=== PATIENT | female | born 1980 | race Caucasian/White ===

== ENCOUNTER 2019-05-17 12:32 | Outpatient (CLI) | payer BC ==
--- NOTE | 2019-05-17 13:25 | MMO ---
Left Breast MAMMO Unilat Diag DDI LT+DAVID. CLINICAL HISTORY: Patient is 38 years old and is seen for additional evaluation requested at current screening. The patient has no family history of breast cancer. The patient has no personal history of cancer. VIEWS: The views performed were: left craniocaudal with tomosynthesis; left mediolateral oblique with tomosynthesis; and left mediolateral with tomosynthesis. FILMS COMPARED: The present examination has been compared to prior imaging studies performed at [facility] on 05/12/2019, and at [facility] on 05/17/2019. MAMMOGRAM FINDINGS: There are scattered fibroglandular densities. The focal asymmetry in the left inner central breast corresponds to a cluster of small cysts on US. There are no suspicious masses, suspicious calcifications, or new areas of architectural distortion. IMPRESSION: THERE IS NO MAMMOGRAPHIC EVIDENCE OF MALIGNANCY. A ROUTINE FOLLOW-UP MAMMOGRAM IN 1 YEAR IS RECOMMENDED. THE RESULTS OF THIS EXAM WERE SENT TO THE PATIENT. ACR BI-RADS Category 2 - Benign finding MAMMOGRAPHY NOTE: 1. A negative mammogram report should not delay a biopsy if a dominant of clinically suspicious mass is present. 2. Approximately 10% to 15% of breast cancers are not detected by mammography. 3. Adenosis and dense breasts may obscure an underlying neoplasm. Reported by: MICKY PUGH MD Electonically Signed: [id number]
--- NOTE | 2019-05-17 15:22 | ULT ---
LEFT BREAST ULTRASOUND: HISTORY: Abnormal mammogram. CORRELATION: Mammograms from today and from 05/12/2019. FINDINGS: Sonographic evaluation of the retroareolar central region of the left female breast demonstrates a cl uster of cysts at the 10 o'clock position, the largest measuring about 4-5 mm. IMPRESSION: BI-RADS category 2-Benign findings. Return to annual mammographic screening. POS: OFF
== END 2019-05-17 12:33 | disposition home or self-care (01) ==
LOC: BICMAMMO 12:32
PROVIDERS: ATTEND Advanced Practice Midwife
DX: N63.20 Unspecified lump in the left breast, unspecified quadrant (principal)
CPT/HCPCS: G0279

== ENCOUNTER 2020-08-31 15:40 | Outpatient (CLI) | payer BC ==
--- NOTE | 2020-09-01 08:32 | MMO ---
Bilateral MAMMO Bilat Screen DDI+DAVID. CLINICAL HISTORY: Patient is 40 years old and is seen for screening. The patient has no family history of breast cancer. The patient has no personal history of cancer. VIEWS: The views performed were: bilateral craniocaudal with tomosynthesis and bilateral mediolateral oblique with tomosynthesis. FILMS COMPARED: The present examination has been compared to prior imaging studies performed at [facility] on 05/12/2019, and at [facility] on 05/17/2019. This study has been interpreted with the assistance of computer-aided detection. MAMMOGRAM FINDINGS: There are scattered fibroglandular densities. Finding 1: There is a new equal density, oval mass measuring 10 millimeters with circumscribed margins seen in the central region of the left breast. Finding 2: There is an area of architectural distortion seen in the central region of the left breast. This is immediately medial and caudal to the mass. In the right breast, there are no suspicious masses, calcifications or areas of architectural distortion. IMPRESSION: FINDING 1: NEW MASS IN THE CENTRAL REGION OF THE LEFT BREAST REQUIRES ADDITIONAL EVALUATION. AN ULTRASOUND EXAM IS RECOMMENDED. FINDING 2: AREA OF ARCHITECTURAL DISTORTION IN THE CENTRAL REGION OF THE LEFT BREAST REQUIRES ADDITIONAL EVALUATION. AN ULTRASOUND EXAM IS RECOMMENDED. THE RESULTS OF THIS EXAM WERE SENT TO THE PATIENT. ACR BI-RADS Category 0 - Incomplete: Need additional imaging evaluation. [facility] will notify the patient of the need for additional imaging services. MAMMOGRAPHY NOTE: 1. A negative mammogram report should not delay a biopsy if a dominant of clinically suspicious mass is present. 2. Approximately 10% to 15% of breast cancers are not detected by mammography. 3. Adenosis and dense breasts may obscure an underlying neoplasm. Reported by: CHRISTOPHER TAYLOR MD Electonically Signed: [id number]
== END 2020-08-31 15:41 | disposition home or self-care (01) ==
LOC: BICMAMMO 15:40
PROVIDERS: ATTEND Advanced Practice Midwife
DX: Z12.31 Encounter for screening mammogram for malignant neoplasm of breast (principal); N63.20 Unspecified lump in the left breast, unspecified quadrant; Q83.9 Congenital malformation of breast, unspecified
CPT/HCPCS: 77063; 77067

== ENCOUNTER 2020-09-07 08:45 | Outpatient (CLI) | payer BC ==
--- NOTE | 2020-09-07 09:15 | ULT ---
EXAM: US Breast Limited Lt PROVIDED CLINICAL HISTORY: Abnormal screening mammogram COMPARISON: Screening mammogram 08/31/2020 FINDINGS: Limited sonographic interrogation was performed at the 12:00 position of the left breast. There is a simple appearing cyst measuring about 1.1 cm, accounting for the circumscribed mass seen sonographically. In addition, there is a vague, irregular shadowing mass at the 12:00 position of the left breast, arturo suring approximately 1.3 cm. IMPRESSION: Shadowing mass in the region of mammographic concern, for which ultrasound-guided breast biopsy is re commended. Results and recommendations discussed with the patient. BI-RADS 4 -- suspicious abnormality, biopsy recommended
== END 2020-09-07 08:46 | disposition home or self-care (01) ==
LOC: BICULT 08:45
PROVIDERS: ATTEND Advanced Practice Midwife
DX: N63.22 Unspecified lump in the left breast, upper inner quadrant (principal)

== ENCOUNTER → 2020-09-11 | Day surgery (SDC) | payer BC ==
--- NOTE | 2020-09-11 14:12 | MMO ---
FILMS COMPARED: The present examination has been compared to prior imaging studies performed at [facility] on 05/17/2019, 08/31/2020 and 09/07/2020. MAMMOGRAM FINDINGS: There are scattered fibroglandular densities. There is a biopsy clip seen in the left breast. Clip is in good position. US and mammogram findings are concordant. IMPRESSION: BIOPSY CLIP IN THE LEFT BREAST IS CONFIRMED UTILIZING POST PROCEDURE MAMMOGRAM. Reported by: ALEJANDRO BINGHAM MD Electonically Signed: [id number]
--- NOTE | 2020-09-12 07:15 | ULT ---
ULTRASOUND GUIDED LEFT BREAST BIOPSY: HISTORY: Shadowing ill-defined hypoechoic area at the 12 o'clock position of the right breast which was recomm ended for biopsy. This is directly adjacent to a cyst. FINDINGS: After informed consent was obtained, the patient was prepped and draped in normal sterile fashion. L ocal anesthesia was obtained with 1% Xylocaine. A small skin incision was made with a #11 scalpel bl elisha. A 14-gauge biopsy gun was placed through a guiding needle and subsequently a series of 6 core b iopsies were performed. The patient tolerated the procedure well. There were no immediate complicat ions. Subsequently, a biopsy clip was deployed. The postbiopsy mammogram showed good position of th e clip showing the mammographic and ultrasound findings are concordant. IMPRESSION: Ultrasound-directed biopsy of ill-defined hypoechoic approximately 1 cm area at the 12 o'clock positi on of the left breast. No immediate complications of the procedure. POS: OFF
== END ==
LOC: BICULT 12:42
PROVIDERS: ATTEND Advanced Practice Midwife
PROC: 0H9U0ZX Drainage of Left Breast, Open Approach, Diagnostic (ICD-10-PCS; principal; 2020-09-11)
DX: N60.92 Unspecified benign mammary dysplasia of left breast (principal)
CPT/HCPCS: 19083; 88305; 88341; 88342

== ENCOUNTER 2020-09-29 16:41 | Outpatient (CLI) | payer BC ==
[2020-09-29 16:48] LABS: #Eosinphils 0.2 10x3/uL (0.0-0.5); #Monocytes 0.6 10x3/uL (0.0-1.1); #Neutrophils 3.6 10x3/uL (1.5-8.4); %Basophils 0.6 % (0.0-2.0); %Eosinophils 2.9 % (0.0-6.0); %Lymphocytes 38.1 % (18.0-47.0); %Monocytes 7.9 % (0.0-10.0); %Neutrophils 50.2 % (40.0-75.0); Hemoglobin 13.1 g/dL (12.0-16.0); Mean Corpuscular HGB CONC 33.4 G/DL (32.0-36.0); Mean Corpuscular Hemoglobin 29.6 PG (27.0-33.0); Mean Corpuscular Volume 88.7 fl (80.0-100.0); Mean Platelet Volume 9.6 fl (7.4-10.4); Platelet Count 258 10x3/uL (130-400); RBC Distribution Width 12.6 % (11.5-14.5); Red Blood Cell (RBC) Count 4.42 10x6/uL (3.90-5.20); White Blood Cell (WBC) Count 7.1 10x3/uL (4.5-11.0)
[2020-09-29 17:13] LABS: Anion Gap 12 mmol/L (10-20); BUN (Urea Nitrogen) 19 mg/dL (7.0-18.7); Calc. Creatinine Clearance 0 mL/min (70-130); Calcium 8.3 mg/dL (7.8-10.44); Carbon Dioxide 23 mmol/L (22-29); Chloride 110 mmol/L (98-107); Estimated GFR-MDRD 66; Glucose 111 mg/dL (70-105); Sodium 141 mmol/L (136-145)
[2020-09-30 16:11] LABS: SARS-CoV-2 MS2 Positive; SARS-CoV-2 N Gene Negative; SARS-CoV-2 S Gene Negative; SARS-CoV-2 by NAA Not Detected (NotDetected); SARS-CoV-2 orf1ab Negative
== END 2020-09-29 16:42 | disposition home or self-care (01) ==
LOC: LABBT 16:41
PROVIDERS: ATTEND Specialist
DX: Z01.812 Encounter for preprocedural laboratory examination (principal); Z20.828 Contact with and (suspected) exposure to other viral communicable diseases; N60.82 Other benign mammary dysplasias of left breast
CPT/HCPCS: 80048; 85025; 87635; U0003

== ENCOUNTER 2020-10-03 07:04 | Day surgery (SDC) | payer BC ==
[2020-10-02 12:07] VITALS: BMI 43.2
[2020-10-03] MEDS ORDERED: Acetaminophen 500 MG TAB ONE (08:17)
[2020-10-03] MEDS ORDERED: Ketorolac Tromethamine 30 MG/ML VIAL ONE (08:17)
[2020-10-03] MEDS ORDERED: Lidocaine 1% w/Epinephrine 1:100K 20 ML VIAL ONE (10:31)
[2020-10-03] MEDS ORDERED: Bupivacaine 0.25% HCL 30 ML VIAL ONE (10:31)
[2020-10-03] MEDS ORDERED: Isosulfan Blue 50 MG/5 ML VIAL ONE (10:47)
[2020-10-03] MEDS ORDERED: Midazolam HCl 2 mg/2 ml Vial ONE (11:57)
[2020-10-03] MEDS ORDERED: Fentanyl 100 MCG/2 ML VIAL ONE ×2 (12:13→13:37)
[2020-10-03] MEDS ORDERED: Dexamethasone 20 MG/5 ML VIAL ONE (12:48)
[2020-10-03] MEDS ORDERED: PROPOFOL 200 MG/20 ML VIAL ONE (12:48)
[2020-10-03] MEDS ORDERED: PHENYLEPHRINE-NS 100 MCG/ML 10 ML SYRINGE ONE (12:48)
[2020-10-03] MEDS ORDERED: Ondansetron PF 4 MG/2 ML Vial ONE (12:48)
[2020-10-03] MEDS ORDERED: ePHEDrine 50 MG/ML VIAL ONE (12:48)
--- NOTE | 2020-10-03 13:51 | MMO ---
SURGICAL SPECIMEN AND RIGHT BREAST NEEDLE LOCALIZATION: HISTORY: Left breast cancer. FINDINGS: Successful left breast needle localization. A 7.5 cm Ethel needle and wire were advanced such that t he wire and needle are adjacent to the surgical clip. TECHNIQUE: Consent was obtained to perform a needle localization of the left breast. The left breast was preppe d and draped in a sterile fashion. Via the needle approach and the Ethel needle was advanced. Needl e position was confirmed in a CC projection. The wire was deployed. Post-deployment images were per formed. SURGICAL SPECIMEN: Lesion as well as the cyst and clip are present in the specimen. Findings conveyed to Dr. Parham. IMPRESSION: Successful needle localization. POS: [facility]
[2020-10-03] MEDS ORDERED: HYDROcodone/Acetaminophen 5/325 mg Tablet ONE (14:35)
--- NOTE | 2020-10-04 12:49 | OP ---
DATE OF PROCEDURE: 10/03/2020 PREOPERATIVE DIAGNOSIS: Left breast atypia. POSTOPERATIVE DIAGNOSIS: Left breast atypia. OPERATION PERFORMED: Left breast needle localized lumpectomy of previously biopsied atypical tissue. ANESTHESIA: General with laryngeal mask airway. INDICATIONS FOR PROCEDURE: The patient is a 40-year-old white female. She previously underwent ultrasound-guided biopsy of an abnormal area within the upper left breast. This was immediately adjacent to a left breast cyst. She was taken to the operating room for wide excision of area of atypia due to potential concern for surrounding abnormality. DESCRIPTION OF OPERATION: Informed consent was obtained. The patient was taken to the operating room, where general anesthesia was obtained with the patient in supine position. She had mammographic needle localization of a clip left within left breast before surgery. This localized wire entered her breast in a medial to lateral fashion crossing the upper breast. Review of the mammography images showed that the area of density appeared to be anterior to the wire and somewhat inferior. The wire itself was immediately adjacent to the localized clip. In the operating room, after general anesthesia was obtained, the breast was prepped with ChloraPrep and draped in sterile fashion. Ultrasound was utilized to examine the course of the localized needle and the location of the cyst was adjacent to the atypical tissue. These were both noted to be anterior and inferior to the localized needle. Local anesthetic was infiltrated using a mixture of 1% lidocaine with epinephrine and 0.25% Marcaine. A transverse incision was created over the area of the intended area of concern. A transverse incision was created. Dissection was carried through skin and subcutaneous tissue. I focused on the tissue anterior to the needle as well as inferior. I dissected about a centimeter down the breast and raised flaps superior, inferior, and medial. I then examined medially further until I identified the localized wire. The needle was removed and the wire was replaced to the counter incision, the tissue into which the wire entered was grasped with an Allis clamps and a wide core of tissue was obtained around this wire, again, concentrated down the tissue anterior and inferior. The specimen was removed intact. Localizing sutures were placed. The specimen was submitted for radiographic evaluation. This showed that the clip was present adjacent to the wire and the area of intensity and suspected cysts were removed intact. The wound was irrigated. Meticulous hemostasis was obtained with electrocautery. It was closed in layers with 3-0 and 4-0 Monocryl suture. Dermabond was placed externally. There were no complications. The patient tolerated the procedure well, was taken to recovery room in stable condition. Job ID: [id number]
== END 2020-10-03 15:20 | disposition home or self-care (01) ==
LOC: SDC 07:04
PROVIDERS: ATTEND Specialist
PROC: 0HBU0ZZ Excision of Left Breast, Open Approach (ICD-10-PCS; principal; 2020-10-03)
DX: D05.12 Intraductal carcinoma in situ of left breast (principal); N60.82 Other benign mammary dysplasias of left breast; N60.22 Fibroadenosis of left breast; E66.01 Morbid (severe) obesity due to excess calories; Z68.41 Body mass index [BMI] 40.0-44.9, adult; Z79.899 Other long term (current) drug therapy
CPT/HCPCS: 19281; 76098; 88307; J0690; J1100; J1885; J2250; J2405; J2704; J3010; J3490; Q9968; S0020

== ENCOUNTER 2021-09-12 10:29 | Outpatient (CLI) | payer BC | END 2021-09-12 10:30 | disposition home or self-care (01) | LOC: BICMAMMO 10:29 | PROVIDERS: ATTEND Radiology Radiation Oncology | DX: Z08 Encounter for follow-up examination after completed treatment for malignant neoplasm (principal); Z85.3 Personal history of malignant neoplasm of breast; Z98.890 Other specified postprocedural states | CPT/HCPCS: 77066; G0279 ==

== ENCOUNTER 2022-06-17 13:40 | Outpatient (CLI) | payer BC | END 2022-06-17 13:41 | disposition home or self-care (01) | LOC: BICRAD 13:40 | PROVIDERS: ATTEND Family Medicine | DX: B34.9 Viral infection, unspecified (principal) | CPT/HCPCS: 71046 ==

== ENCOUNTER 2022-10-16 14:57 | Outpatient (CLI) | payer OTHER | END 2022-10-16 14:58 | disposition home or self-care (01) | LOC: BICMAMMO 14:57 | PROVIDERS: ATTEND Radiology Radiation Oncology | DX: Z08 Encounter for follow-up examination after completed treatment for malignant neoplasm (principal); Z85.3 Personal history of malignant neoplasm of breast | CPT/HCPCS: 77066; G0279 ==

== ENCOUNTER 2023-10-06 10:15 | Outpatient (CLI) | payer OTHER | END 2023-10-06 10:16 | disposition home or self-care (01) | LOC: BICRAD 10:15 | PROVIDERS: ATTEND Nurse Practitioner Family | DX: I49.3 Ventricular premature depolarization (principal) | CPT/HCPCS: 71046 ==